=== PATIENT | female | born 1955 | race Native Hawaiian/Other Pacific Islander ===

== ENCOUNTER 2020-11-21 23:20 | Emergency (ER) | payer OTHER ==
[~2020-11-21] VITALS: Ht 170.2 cm; Wt 73.9 kg
[2020-11-21 23:20] VITALS: BP 133/84; TEMP 98.6
[2020-11-21 23:41] LABS: PLATELET COUNT 377 K/uL (152-353); POTASSIUM 3.2 mmol/L (3.6-5.2)
[2020-11-22] MEDS ORDERED: DICYCLOMINE HYD10 MG PO (02:40)
[2020-11-22] MEDS ORDERED: DIPH25CA90 PO (02:42)
[2020-11-22] MEDS ORDERED: LEVE500T5 PO (02:43)
[2020-11-22] MEDS ORDERED: QUET25TA2 PO ×2 (02:45→02:46)
[2020-11-22] MEDS ORDERED: HALO5INJ3 IM (02:50)
[2020-11-22] MEDS ORDERED: VITD PO (02:57)
[2020-11-22] MEDS ORDERED: CALCIUM CARB PO (02:57)
[2020-11-22] MEDS ORDERED: BOOST PLUS PO (02:59)
== END 2020-11-22 01:05 | disposition other institution (70) ==
LOC: ED 23:20
PROVIDERS: Family Medicine
DX: F03.91 Unspecified dementia, unspecified severity, with behavioral disturbance (principal); Z11.52 Encounter for screening for COVID-19; Z04.6 Encounter for general psychiatric examination, requested by authority
CPT/HCPCS: 36415; 80053; 85027; 87635; 93005; 99283; U0003

== ENCOUNTER 2020-12-09 17:00 | Observation (INO) | payer OTHER ==
[~2020-12-09] VITALS: Ht 170.2 cm; Wt 68.5 kg
[~2020-12-09 17:00] MED LIST: BOOST PLUS PO; CALCIUM CARB PO; DICYCLOMINE HYD10 MG PO; DIPH25CA90 PO; DIVA250T2 PO; HALO5INJ3 IM; LEVE500T5 PO; LORA2INJ21 IM; MAGICMOUTH PO; MIRALAX 17GM PAK PO; NYSTCRE TOP; OLANZAPINE10 MG PO; QUET25TA2 PO; VITD PO
[2020-12-09 18:15] VITALS: BP 106/55; TEMP 98.9; Ht 170.2 cm; Wt 68.5 kg
--- NOTE | 2020-12-09 21:26 | NUR ---
CALL MADE X2 TO ADEN ALVAREZ FOR PERMISSION TO INFUSE PRBC'S.
--- NOTE | 2020-12-09 21:27 | NUR ---
MESSAGE WAS LEFT ON ANSWERING MACHINE. WAITING FOR RETURN CALL.
[2020-12-09 23:42] VITALS: BP 100/56; TEMP 99.8
[2020-12-10] VITALS (9 sets, daily range): BP systolic 90–113; BP diastolic 50–60; TEMP 97.2–99
--- NOTE | 2020-12-10 03:39 | NUR ---
PRBC'S 1ST UNIT INFUSING. PT TOLERATING WITHOUT S/SX OF ADVERSE REACTIONS.
--- NOTE | 2020-12-10 04:39 | NUR ---
PT'S FARHAT AREA WAS CLEANED AND PATTED DRY. PT WITH REDNESS TO INNER THIGHS AND FARHAT AREA.
--- NOTE | 2020-12-10 08:50 | NUR ---
UNIT #2 OF PRBC COMPLETE AT THIS TIME, NO REACTIONS NOTED, PT TOLERATED WELL, IV FLUSHED WITHOUT DIFFICULTY, BLOOD BAG RETURNED TO LAB AT THIS TIME, DR. VARGAS NOTIFIED AND ORDERS FOR PT TO BE DC BACK TO [facility] AT THIS TIME, NO FURTHER ORDERS GIVEN AT THIS TIME
--- NOTE | 2020-12-10 11:44 | NUR ---
1000 REPORT GIVEN TO AMADA CAMPOVERDE RN. 1015 PT PLACED IN RO-CHAIR AND TRASNFERED BACK TO U WITH U PCT'S. PT AWAKE AND ALERT. NO ACUTE DITRESS NOTED.
== END 2020-12-10 10:15 | disposition other institution (70) ==
LOC: PCU 17:00
PROVIDERS: ADMIT Internal Medicine; ATTEND Internal Medicine
PROC: 30233N1 Transfusion of Nonautologous Red Blood Cells into Peripheral Vein, Percutaneous Approach (ICD-10-PCS; principal; 2020-12-10)
DX: D64.89 Other specified anemias (principal); G40.802 Other epilepsy, not intractable, without status epilepticus; K59.09 Other constipation; E87.1 Hypo-osmolality and hyponatremia
CPT/HCPCS: 86850; 86900; 86901; 86922; 87635; 99220; G0378; G0379; P9016; U0003